=== PATIENT | male | born 1995 | race American Indian/Alaskan Native ===

== ENCOUNTER 2017-12-24 15:44 | Emergency (ER) | payer OTHER ==
[~2017-12-24] VITALS: Ht 182.9 cm; Wt 97.5 kg
[2017-12-24] MEDS ORDERED: Bactrim Ds Tab1 EACH PO (20:07)
[2017-12-24] MEDS ORDERED: Hydrocodone-Ap1 EA23 PO (20:07)
[2017-12-24] MEDS ORDERED: IBUP600 PO (20:07)
== END 2017-12-24 20:33 | disposition home or self-care (01) ==
LOC: ER 15:44
DX: S62.632B Displaced fracture of distal phalanx of right middle finger, initial encounter for open fracture (principal); W23.0XXA Caught, crushed, jammed, or pinched between moving objects, initial encounter
CPT/HCPCS: 73140; 96361; 96365; 99284; J0690; J7030